=== PATIENT | female | born 1980 | race Caucasian/White ===

== ENCOUNTER 2020-07-05 10:31 | Emergency (ER) | payer SELFPAY ==
[2020-07-05 10:42] VITALS: BP 128/88
[2020-07-05] MEDS ORDERED: MECLIZINE HCL 25 MG TABLET PO ONE (11:54)
[2020-07-05] MEDS ORDERED: NORMAL SALINE 1000 ML 1,000 ML IV ONE (11:54)
[2020-07-05] MEDS ORDERED: ONDANSETRON 4 MG TAB.RAPDIS PO ONE (11:55)
--- NOTE | 2020-07-05 11:55 | ER Document Report ---
ED Medical Screen (RME) - General Chief Complaint: Dizziness Stated Complaint: DIZZINESS,NAUSEA,SHAKING Time Seen by Provider: 07/05/20 11:49 Notes: Patient presents complaining of 4-day history of dizziness with palpitations. Patient states that dizziness has been off and on and makes her feel so she is off balance and may pass out. Patient states she has had headache symptoms the past 10 days. Patient does report some nausea. I have greeted and performed a rapid initial assessment of this patient. A comprehensive ED assessment and evaluation of the patient, analysis of test results and completion of the medical decision making process will be conducted by additional ED providers. - Related Data Allergies/Adverse Reactions: amoxicillin Allergy (Verified 07/05/20 11:51) cephalexin [From Keflex] Allergy (Verified 07/05/20 11:51) iodine Allergy (Verified 07/05/20 11:51) Penicillins Allergy (Verified 07/05/20 11:51) Physical Exam - Vital signs Vitals: Temp Pulse Resp BP Pulse Ox 98.3 F 84 16 128/88 H 98 07/05/20 10:41 07/05/20 10:41 07/05/20 10:41 07/05/20 10:41 07/05/20 10:41 - Cardiovascular Rhythm: Regular Heart sounds: S1 appreciated, S2 appreciated - Neurological Orientation: AAOx4 Sis Coma Scale Eye Opening: Spontaneous [place] Coma Scale Verbal: Oriented Sis Coma Scale Motor: Obeys Commands [place] Coma Scale Total: 15 Course - Vital Signs Vital signs: Temp Pulse Resp BP Pulse Ox 98.3 F 84 16 128/88 H 98 07/05/20 10:41 07/05/20 10:41 07/05/20 10:41 07/05/20 10:41 07/05/20 10:41
[2020-07-05 12:40] LABS: ABSOLUTE EOSINOPHILS # (AUTO) 0.1 10^3/uL (0.0-0.6); ABSOLUTE LYMPHOCYTES (AUTO) 1.6 10^3/uL (0.5-4.7); ABSOLUTE MONOCYTES (AUTO) 0.3 10^3/uL (0.1-1.4); ABSOLUTE NEUT (AUTO) 3.9 10^3/uL (1.7-8.2); BASOPHILS % (AUTO) 0.8 % (0-2); EOSINOPHILS % (AUTO) 1.3 % (0-6); HEMATOCRIT 40.7 % (36.0-47.0); HEMOGLOBIN 13.6 g/dL (12.0-15.5); LYMPHOCYTES % (AUTO) 26.7 % (13-45); MEAN CORPUSCULAR HEMOGLOBIN 27.4 pg (27.0-33.4); MEAN CORPUSCULAR HGB CONC 33.4 g/dL (32.0-36.0); MEAN CORPUSCULAR VOLUME 82 fl (80-97); PLATELET COUNT 223 10^3/uL (150-450); RED BLOOD COUNT 4.95 10^6/uL (3.72-5.28); RED CELL DISTRIBUTION WIDTH 13.2 % (11.5-14.0); SEGMENTED NEUTROPHILS % (AUTO) 66.2 % (42-78); TOTAL CELLS COUNTED % (AUTO) 100 %
[2020-07-05 13:03] LABS: ALBUMIN 4.4 g/dL (3.5-5.0); ALKALINE PHOSPHATASE 98 U/L (38-126); ANION GAP 7 (5-19); ASPARTATE AMINO TRANSFERASE 26 U/L (14-36); BILIRUBIN,DIRECT 0.2 mg/dL (0.0-0.4); BILIRUBIN,TOTAL 0.4 mg/dL (0.2-1.3); BLOOD UREA NITROGEN 14 mg/dL (7-20); CALCIUM 10.1 mg/dL (8.4-10.2); CARBON DIOXIDE 30 mmol/L (22-30); CHLORIDE 106 mmol/L (98-107); GLUCOSE 109 mg/dL (75-110); POTASSIUM 5.2 mmol/L (3.6-5.0); TOTAL PROTEIN 7.7 g/dL (6.3-8.2)
--- NOTE | 2020-07-05 15:40 | EKG REPORT ---
SEVERITY:- NORMAL ECG - SINUS RHYTHM : Confirmed by: Khanh Do MD 05-Jul-2020 15:39:11
== END 2020-07-05 16:49 | disposition left against medical advice (07) ==
LOC: ER 10:31
DX: R42 Dizziness and giddiness (principal); R00.2 Palpitations; R11.0 Nausea; Z88.0 Allergy status to penicillin; Z88.1 Allergy status to other antibiotic agents; Z53.20 Procedure and treatment not carried out because of patient's decision for unspecified reasons
CPT/HCPCS: 36415; 80053; 82962; 84443; 85025; 93005; 93010; 99281